=== PATIENT | female | born 1965 | race Caucasian/White ===

== ENCOUNTER 2019-08-12 18:46 | Observation (INO) | payer OTHER ==
--- NOTE | 2019-08-12 19:41 | PDOC.FPRHP ---
- History of Present Illness Chief Complaint: Chest Flutters History of Present Illness: 54yo CF with no significant PMHx presents with palpitations. Pt states that started Saturday she had episodes of "skipped heart beats." Wound last a few seconds and then resolved. Recurring every few minutes but then would resolve for hours and recur again, no predictable pattern. Would take deep breaths and resolved. States she worked out on elliptical yesterday without any sxs. Pt states that she has similar episode of sxs 1 month ago, lasting a few days, and self-resolved so did not see a physician. Prior to that, no similar episodes. States she sees her PCP yearly for annual exams and has no medical conditions. Denies any lightheadedness, dizziness, CP, SOB, n/v, abd pain, syncope or presyncope during or around events. No recent illness or trauma. Does endorse LE edema, ongoing for >1 year, worse at bed of day better at beginning and rest. Uses compression stockings with relief. Also endorses BL hand numbness, associated with "carpal tunnel" sxs, uses braces at night with relief of sxs. Endorses constipation with last good BM 1 week ago. Does endorse increased stress with recently taking care of her mother with end-stage dementia. ED Course: Tx from [place]. Given ASA. EKG Bigeminy. Trop neg. - Allergies/Adverse Reactions Allergies Allergy/AdvReac Type Severity Reaction Status Date / Time No Known Allergies Allergy Verified 08/13/19 00:06 - Home Medications Medication Instructions Recorded Confirmed Type Cetirizine HCl [Zyrtec] 10 mg PO DAILY 08/13/19 08/13/19 History - History PMHx: None PSHx: Bladder Lift FHx: Mom- Dementia, Dad- passed 2010 staph infection, no history of cardiac disease. Social: Reports occasional alcohol use, 3 glasses of wine/week. Denies any tobacco use or illicit drug use. 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 Pt is full code - Review of Systems General: denies: fever/chills, weight/appetite/sleep changes, night sweats, fatigue Eyes: denies: eye pain, vision changes ENT: denies: nasal congestion, rhinorrhea Respiratory: denies: cough, congestion, shortness of breath, exercise intolerance Cardiovascular: reports: palpitation. denies: chest pain, edema, orthopnea Gastrointestinal: reports: constipation. denies: nausea, vomiting, diarrhea, abdominal pain, GI bleeding Genitourinary: denies: incontinence, dysuria Skin: denies: rashes, lesions Musculoskeletal: denies: pain, tenderness Neurological: denies: numbness, syncope, weakness Psychological: denies: anxiety, depression - Vital signs BP: [132/81] HR: [88] RR: [18] Tmax: [98.4] Pox: [97]% on [RA] Wt: [82kg] - Physical Exam Constitutional: NAD, awake, alert and oriented, well developed HEENT: normocephalic and atraumatic, grossly normal vision, grossly normal hearing, MMM Neck: supple, trachea midline Heart: RRR, normal S1/S2, no murmurs/rubs/gallops, pulses present, no edema Lungs: CTAB, no respiratory distress, good air movement, no rales/rhonchi, no wheezing Abdomen: soft, non-tender, bowel sounds present, no masses/distention Musculoskeletal: normal structure, other (negative phalens test) Neurological: no focal deficit, normal sensation Skin: no rash/lesions Psychiatric: normal mood and affect, good judgment and insight, intact recent and remote memory FMR H&P: Results - Labs Result Diagrams: 08/13/19 05:30 - Radiology Interpretation Chest x-ray Status: image reviewed by me, report reviewed by me (No acute cardiopulmonary process) FMR H&P: A/P - Problem List (1) Ventricular bigeminy Current Visit: Yes Status: Acute Code(s): I49.9 - CARDIAC ARRHYTHMIA, UNSPECIFIED (2) Constipation Current Visit: Yes Status: Acute Code(s): K59.00 - CONSTIPATION, UNSPECIFIED - Plan 54yo CF with no significant PMHx presents with palpitations found to have ventricular bigeminy on EKG. #Ventricular Bigeminy - Captured on EKG, 6-7 beat run of ventricular bigeminy - Asx during episode other than feeling of palpitations, second occurrence of sxs in 1 month time - Trop <0.010, will trend x3 - Lytes WNL, will check Mg, Phos - Echo in AM - Consider cardiology consult in AM for possible holter monitoring and further recs - Admit to Tele obs for continuos cardiac monitoring - Cont daily ASA - Will obtain FLP, A1C - TSH WNL at 1.4 - repeat EKG in AM #Constipation - 1 week of sxs, has tried miralax at home, will cont miralax and sennokot and monitor VTE: SCDs, encourage ambulation - low risk Diet: HH, NPO at midnight Code: Full IVF: SL PCP: Dr. Herrera in [place] Disposition/LOS: Admit to tele obs. Monitor on telemetry. Echo in AM. Consider cardiology consult in AM. Anticipate hospitalization <48 hours. FMR H&P: Upper Level - Pertinent history I was present with the analysis intern during the HPI. I scribed the above document. I made edits as needed. - Pertinent findings Pt resting comfortably. Cardio: RRR, no murmurs or gallops Ext: No edema noted. - Plan Date/Time: 08/12/191936 I, Hansel Silverman, PGY-3, have evaluated this patient and agree with findings/ plan as outlined by analysis intern resident. Pertinent changes/additions are listed here. At this time pt has bigeminy seen on EKG. Pt asx. Will trend trops and get ECHO as she reports some fluid overload at times. Admit to tele obs for cardiac monitoring. Consult cards in AM. See above for detailed plan. I made edits as needed. Addendum - Attending - Attending Attestation Date/Time: 08/13/19 0836 I personally evaluated the patient and discussed the management with Dr. Francisco last night. I agree with the History, Examination, Assessment and Plan documented above with any addition or exceptions noted below.
[2019-08-12 20:48] LABS: Troponin I Less than 0.010 ng/mL (< 0.028)
[2019-08-12 23:45] LABS: Troponin I Less than 0.010 ng/mL (< 0.028)
[2019-08-12] MEDS ORDERED: Ondansetron PF 4 MG/2 ML Vial IVP PRN (23:51)
[2019-08-12] MEDS ORDERED: Calcium Carbonate 500 MG ChewTAB PO PRN (23:51)
[2019-08-12] MEDS ORDERED: Acetaminophen 325 MG TAB PO PRN (23:51)
[2019-08-12] MEDS ORDERED: Ondansetron ODT 4 MG TAB PO PRN (23:51)
[2019-08-13 00:03] VITALS: BMI 26.4
[2019-08-13 00:15] LABS: Magnesium 2.2 mg/dL (1.6-2.6); Phosphorus 3.3 mg/dL (2.3-4.7)
[2019-08-13 00:39] LABS: Hemoglobin A1c 5.4 % (4.0-6.0)
[2019-08-13 06:11] LABS: ALT (SGPT) 21 U/L (8-55); AST (SGOT) 22 U/L (5-34); Albumin 4.1 g/dL (3.5-5.0); Alkaline Phosphatase 107 U/L (40-110); Anion Gap 11 mmol/L (10-20); BUN (Urea Nitrogen) 12 mg/dL (9.8-20.1); Bilirubin, Total 0.6 mg/dL (0.2-1.2); Calc. Creatinine Clearance 98 mL/min (70-130); Calcium 9.7 mg/dL (7.8-10.44); Carbon Dioxide 25 mmol/L (22-29); Cardiac Risk 4.2 (Less than 4.5); Chloride 108 mmol/L (98-107); Cholesterol 225 mg/dl (< 200 Desired); Estimated GFR-MDRD 71; Glucose 91 mg/dL (70-105); HDL Cholesterol 53 mg/dL (>60 Neg Risk); LDL Cholesterol, Calculated 154 mg/dL; Potassium 3.8 mmol/L (3.5-5.1); Protein, Total 7.1 g/dL (6.0-8.3); Sodium 140 mmol/L (136-145); Triglycerides 88 mg/dL (Less than 150)
--- NOTE | 2019-08-13 06:13 | PDOC.FM ---
- Subjective Subjective: Patient doing well this morning. Had normal sinus overnight with some runs of bigeminal pvcs. Patient states that she does not have cp, but can feel the irregular rhythm when she has them. Discussed plan of care today, patient agreeable. - Objective Vital Signs & Weight: Vital Signs (12 hours) Temp Pulse Resp BP BP Pulse Ox 08/13/19 03:51 98 F 64 18 105/51 L 96 08/12/19 23:20 97.8 F 68 17 122/59 L 96 Weight Weight 81.102 kg Result Diagrams: 08/13/19 05:30 Phys Exam - Physical Examination Constitutional: NAD HEENT: moist MMs, sclera anicteric Neck: supple, full ROM Respiratory: no wheezing, clear to auscultation bilateral Cardiovascular: no significant murmur bigeminal pvcs Gastrointestinal: soft, non-tender Musculoskeletal: no edema, pulses present Neurological: normal sensation, moves all 4 limbs Psychiatric: normal affect, A&O x 3 Skin: normal turgor, cap refill <2 seconds Dx/Plan (1) Constipation Code(s): K59.00 - CONSTIPATION, UNSPECIFIED Status: Acute (2) Ventricular bigeminy Code(s): I49.9 - CARDIAC ARRHYTHMIA, UNSPECIFIED Status: Acute - Plan Plan: 54yo CF with no significant PMHx presents with palpitations found to have ventricular bigeminy on EKG. #Ventricular Bigeminy - Captured on EKG, 6-7 beat run of ventricular bigeminy - Asymptomatic during episode other than feeling of palpitations, second occurrence of sxs in 1 month time - Trop <0.010 x3 - Lytes WNL - Mg, Phos wnl - Echo today - Cardiology consult today for possible holter monitoring, appreciate recs - Admit to Tele obs for continuos cardiac monitoring - Cont daily ASA - A1C 5.4 - FLP: total chol 225, LDL 154, HDL 53, ASCVD risk 2.2%, will encourage healthy lifestyle at this time - TSH wnl at 1.4 #Constipation - 1 week of sxs, has tried miralax at home, will cont miralax and sennokot and monitor VTE: SCDs, encourage ambulation - low risk Diet: NPO Code: Full IVF: SL PCP: Dr. Herrera in [place] Addendum - Attending - Attending Attestation Date/Time: 08/13/19 8091 I personally evaluated the patient and discussed the management with Dr. Hidalgo I agree with the History, Examination, Assessment and Plan documented above with any addition or exceptions noted below- Patient denies complaints except occasioanl palpitations. Afebrile VSS. A/P: 1) Bigeminy - eco-normal; EP consulted and will await recommendations.
[2019-08-13] MEDS ORDERED: Aspirin 81 mg Enteric Coated Tablet PO SCH (09:00)
[2019-08-13 15:12] VITALS: BP 130/58; TEMP 98.8
--- NOTE | 2019-08-13 17:23 | EKG ---
Test Reason : Blood Pressure : / mmHG Vent. Rate : 063 BPM Atrial Rate : 063 BPM P-R Int : 186 ms QRS Dur : 088 ms QT Int : 396 ms P-R-T Axes : 075 055 055 degrees QTc Int : 405 ms Normal sinus rhythm Normal ECG When compared with ECG of 12-AUG-2019 18:54, (Unconfirmed) Premature ventricular complexes are no longer Present Confirmed by DR. Grupo CHILDERS ([id number]) on 08/13/2019 5:23:33 PM Referred By: GLENN Cruz Confirmed By:DR. Grupo CHILDERS
--- NOTE | 2019-08-13 19:45 | CON ---
DATE OF CONSULTATION: 08/13/2019 HISTORY OF PRESENT ILLNESS: I am seeing Ms. Hirsch at our [facility] Telemetry Floor as an Electrophysiology cost consultant. Her problems are; 1. Palpitations with isolated monomorphic PVCs, which is right bundle inferior axis in morphology. 2. Preserved LVEF on echocardiogram at 50% to 55%. Mild MR and TR. ALLERGIES: NONE NOTED. MEDICATIONS: At home, cetirizine. SUBJECTIVE: Ms. Hirsch is here with skipped heart beat sensations happening for last couple of seconds and resolved, occurring later for hours and recur again without any provoking and relieving factors, think deep breath sometimes helped. She was able to exercise though. Denies chest pains. No significant dyspnea. Denies dizziness or loss of consciousness. No stroke-like symptoms. No neurological deficits. Rest of 12-point review of system is unremarkable. PAST MEDICAL HISTORY: As above. SOCIAL HISTORY: The patient denied smoking, EtOH, or drug abuse. FAMILY HISTORY: Not contributory. OBJECTIVE DATA: VITAL SIGNS: Blood pressure 130/58, heart rate 69, respirations 14, and temperature 98.8 degrees Fahrenheit. GENERAL: Alert and oriented woman, in no apparent distress. NECK: Supple. Jugular veins not distended. CHEST: Coarse without crackles. HEART: Sounds are regular to rate and rhythm. No murmur or gallop. ABDOMEN: Benign. Bowel sounds positive. EXTREMITIES: Lower extremities without edema, clubbing, or cyanosis. Pulses are adequate. NEUROLOGIC: The patient is nonfocal. MUSCULOSKELETAL: Without joint swelling or deformity. SKIN: Without rash. DATABASE: EKG is reviewed, initially revealing sinus rhythm, rate of 63 beats per minute. No significant ST-T changes. QRS is narrow at [address]-T changes are noted. Subsequent EKG does reveal sinus rhythm with occasional bigeminy and PVCs, which are relatively narrow complex, right bundle left axis in morphology. LABORATORY DATA: Troponins are negative. Electrolytes within normal range. ASSESSMENT AND PLAN: Ms. Hirsch is a very pleasant 54-year-old woman without prior history of heart disease or heart attacks, who has presented with frequent PVCs, on occasion likely ventricular bigeminy has been documented. The symptoms are relatively mild. Echo for now reveals structurally normal findings. In view of the lack of structural heart disease, episodic PVCs are likely to be benign. Consideration of beta blanca therapy could be a good initial choice. Alternatively, flecainide could be consider as a later alternatives that is not sufficient to suppress the arrhythmias. We also discussed options for ablation, although at this point, medical therapy would be the most reasonable choice initially. It is reasonable to discharge her and I see her back as outpatient after a treadmill stress test and a 48-hour Holter. Job ID: [id number]
--- NOTE | 2019-08-14 14:17 | DIS ---
DATE OF ADMISSION: 08/12/2019 DATE OF DISCHARGE: 08/13/2019 ADMITTING RESIDENT: Hansel Silverman MD ADMITTING ATTENDING: Julien Yoo MD DISCHARGE ATTENDING: Cecille Do MD DISCHARGE RESIDENT: Berta Hidalgo MD CONSULT: Electrophysiology (Dr. Sears). PROCEDURES PERFORMED: None. IMAGING: Echo: EF 50% to 55%, mild mitral regurgitation, sclerotic aortic valve, mild tricuspid regurgitation. PRIMARY DIAGNOSIS: Ventricular bigeminy. SECONDARY DIAGNOSIS: Constipation, hyperlipidemia. DISCHARGE MEDICATIONS: 1. 10 mg Zyrtec p.o. daily. 2. 25 mg metoprolol p.o. daily x30 tabs. DISCONTINUED MEDICATIONS: 1. Tylenol. 2. 81 mg aspirin. 3. Zofran. HISTORY OF PRESENT ILLNESS/HOSPITAL COURSE: The patient is a 54-year-old female with no significant past medical history, presented with palpitations that has been going on intermittently for about one month. She denied chest pain or lightheadedness/syncopal episodes during those times, but reported that she could feel the palpitations. On EKG, she was found to have ventricular bigeminy. Tropes were negative x3. As part of the cardiac workup, some lab work was done including an A1c that was 5.4%, fasting lipid panel that showed: Total cholesterol 225, LDL 154, HDL 53, making her ASCVD risk score 2.2%. Lifestyle changes were recommended at this time to help reduce her cholesterol. She has had an echo done, see above. Dr. Sears from Electrophysiology was consulted and recommended beta-blanca therapy with followup outpatient for treadmill stress test and a 48-hour Holter monitor. The patient was evaluated on the day of discharge and found to be in stable condition. She was agreeable to being discharged with a plan for further workup outpatient. DISPOSITION: Stable. DISCHARGE INSTRUCTIONS: 1. Location: Home. 2. Diet: Heart healthy. 3. Activity: As tolerated. 4. Followup: Follow up with Dr. Crenshaw in 2-3 weeks, Dr. Sears within 14 days. Job ID: [id number] [id number]
== END 2019-08-13 18:47 | disposition home or self-care (01) ==
LOC: ERS 18:46 → 2SW 19:30
PROVIDERS: ADMIT Family Medicine; ATTEND Family Medicine
DX: I49.9 Cardiac arrhythmia, unspecified (principal); K59.00 Constipation, unspecified; E78.5 Hyperlipidemia, unspecified; Z79.899 Other long term (current) drug therapy
CPT/HCPCS: 36415; 36416; 80053; 80061; 83036; 83735; 84100; 93005; 93010; 93306; G0378